=== PATIENT | male | born 1945 | race Caucasian/White ===

== ENCOUNTER 2016-12-06 13:09 | Inpatient (IN) | payer MEDICARE ==
[~2016-12-06] VITALS: Ht 182.9 cm; Wt 95.5 kg
[2016-12-07] MEDS ORDERED: LIPI10TA PO (09:36)
[2016-12-07] MEDS ORDERED: HYDR-3534 PO (09:36)
[2016-12-07] MEDS ORDERED: CHOL50008 PO (09:36)
[2016-12-07] MEDS ORDERED: PRIL20CA9 PO (09:36)
[2016-12-07] MEDS ORDERED: LISI-519 PO (09:36)
[2016-12-07] MEDS ORDERED: IBUP400T20 PO (09:36)
[2016-12-07] MEDS ORDERED: CARV3.12 PO (09:36)
[2016-12-07] MEDS ORDERED: FLUT1SPR5 EACH NARE (09:42)
[2016-12-24] MEDS ORDERED: POVIDONE IODINE 5% (ANTISEPSIS KIT) 4 APPLICATIONS EACH NARE PRN (05:30)
[2016-12-24] MEDS ORDERED: CHLORHEXIDINE GLUCONATE 2 % 1 PACK (2 CLOTHS) TOPICAL PRN (05:30)
[2016-12-24] MEDS ORDERED: SODIUM CHLORID 0.9% 500 ML IV PRN (05:30)
[2016-12-24] MEDS ORDERED: INSULIN HUMAN REGULAR 1,000 UNITS/10 ML VIAL SQ PRN (05:30)
[2016-12-24] MEDS ORDERED: METOPROLOL TARTRATE 25 MG TAB PO PRN (05:30)
[2016-12-24] MEDS ORDERED: LACTATED RINGER'S 1000 ML INJ 1,000 ML IV SCH (05:30)
[2016-12-24] MEDS ORDERED: DEXAMETHASONE SOD PHOS 20 MG/5 ML VIAL ONE (05:37)
[2016-12-24] MEDS ORDERED: VANCOMYCIN HCL 1000 MG VIAL ONE (05:37)
[2016-12-24] MEDS ORDERED: ceFAZolin 2 GM PREMIX 50 ML ONE (05:37)
[2016-12-24] MEDS ORDERED: SODIUM CHLOR 0.9% 250 ML INJ 250 ML ONE (05:37)
[2016-12-24] MEDS: POVIDONE IODINE 7.5% SCRUB 118 ML BOTTLE TOPICAL SCH (05:45)
[2016-12-24] MEDS ORDERED: DEXAMETHASONE SOD PHOS 20 MG/5 ML VIAL IV PRN (05:45)
[2016-12-24] MEDS ORDERED: VANCOMYCIN 1000 MG/NS 250 ML (for <70 kg) IV SCH ×2 (05:45)
[2016-12-24] MEDS: CHLORHEXIDINE GLUCONATE 4% SOLN 120 ML BTL TOPICAL SCH (05:45)
[2016-12-24] MEDS ORDERED: TRANEXAMIC ACID IV SCH (05:45)
[2016-12-24] MEDS ORDERED: ceFAZolin 2 GM PREMIX 50 ML IV SCH (05:45)
[2016-12-24] MEDS ORDERED: [UNRECOGNIZED DRUG - OTHER] P-ARTICULR SCH ×2 (05:45)
[2016-12-24] MEDS ORDERED: TRANEXAMIC PERI-ARTICULAR 3,000 MG/NS 100 ML P-ARTICULR SCH ×2 (05:45)
[2016-12-24] MEDS ORDERED: SODIUM CHLORIDE 0.9% IV SCH (05:45)
[2016-12-24] MEDS ORDERED: ROPIVACAINE PERI-ARTICULAR INJECTION. P-ARTICULR SCH ×5 (05:45)
[2016-12-24] MEDS ORDERED: LISI20TA PO (05:51)
[2016-12-24 05:52] VITALS: BP 148/87; PULSE 78; RESP 22; TEMP 98; O2SAT 97
[2016-12-24] MEDS ORDERED: GENTAMICIN SULFATE 80 MG/2 ML VIAL ONE (06:13)
[2016-12-24] MEDS ORDERED: FAMOTIDINE 20 MG/2 ML VIAL ONE (06:47)
[2016-12-24] MEDS ORDERED: ACETAMINOPHEN 1000 MG/100 ML VIAL IV ONE (06:47)
[2016-12-24] MEDS ORDERED: DEXAMETHASONE SOD PHOS 4 MG/ML VIAL ONE (06:50)
[2016-12-24] MEDS ORDERED: MIDAZOLAM HCL 2 MG/2 ML VIAL ONE ×2 (06:51→09:25)
[2016-12-24] MEDS ORDERED: HYDR-3288 PO (07:04)
[2016-12-24] MEDS ORDERED: ENOX40P SQ (07:04)
[2016-12-24] MEDS ORDERED: ASPI81CH37 CHEW (07:05)
[2016-12-24] MEDS ORDERED: BISACODYL 10 MG SUPP RECTAL PRN (07:15)
[2016-12-24] MEDS ORDERED: ACETAMINOPHEN/HYDROcodone 325 MG/7.5 MG TAB PO PRN ×2 (07:15→08:00)
[2016-12-24] MEDS ORDERED: Post-op Orders (for Pharmacy) MISC XX ONE (07:15)
[2016-12-24] MEDS ORDERED: SODIUM CHLORIDE 0.9% FLUSH 5 ML FLUSH IVF PRN (07:15)
[2016-12-24] MEDS ORDERED: MORPHINE SULFATE 4 MG/ML INJ IV PUSH PRN (08:00)
[2016-12-24] MEDS ORDERED: NALOXONE HCL 0.4 MG/ML AMP IV PRN (08:00)
[2016-12-24] MEDS ORDERED: ZOLPIDEM TARTRATE 5 MG TAB PO PRN (08:00)
[2016-12-24] MEDS ORDERED: diphenhydrAMINE HCL 50 MG/ML VIAL IV PRN (08:00)
[2016-12-24] MEDS ORDERED: ONDANSETRON HCL 4 MG/2 ML VIAL IVP PRN (08:00)
[2016-12-24] MEDS ORDERED: ALUMINUM/MAGNESIUM/SIMETH 30 ML CUP PO PRN (08:00)
[2016-12-24] MEDS: HYDROCHLOROTHIAZIDE 25 MG TAB PO SCH (09:00)
[2016-12-24] MEDS ORDERED: CARVEDILOL 3.125 MG TAB PO SCH (09:00)
[2016-12-24] MEDS: PANTOPRAZOLE SOD 20 MG DELAYED RELEASE TAB PO SCH (09:00)
[2016-12-24] MEDS: LISINOPRIL 20 MG TAB PO SCH (09:00)
[2016-12-24] MEDS ORDERED: DO NOT ADM ANY ANTICOAGULANT DRUGS PRN (09:13)
[2016-12-24] MEDS ORDERED: *morphine SULFATE 8 MG/ML PERIprocedure ONLY ONE ×3 (09:39→10:01)
[2016-12-24] MEDS: SODIUM CHLOR 0.9% 1000 ML INJ 1,000 ML IV SCH ×2 (09:51→18:00)
[2016-12-24] MEDS ORDERED: BUPIVACAINE LIPOSOME PF 1.3% 20 ML VIAL ONE (10:00)
--- NOTE | 2016-12-24 10:07 | RADRPT ---
EXAM DATE/TIME: 12/24/2016 10:50 [facility] COMPARISON: CHEST PA & LAT, December 07, 2016, 11:30. INDICATIONS : Post op knee surgery MEDICAL HISTORY : None. SURGICAL HISTORY : None. ENCOUNTER: Initial ACUITY: 1 day PAIN SCORE: Non-responsive. LOCATION: Left knee FINDINGS: The patient is post left knee arthroplasty. Orthopedic hardware is in excellent position. Alignment i s good. CONCLUSION: 1. Orthopedic hardware in excellent position. Malick Etienne MD on December 24, 2016 at 10:05 Board Certified Radiologist. This report was verified electronically.
[2016-12-24] MEDS: SODIUM CHLORIDE 0.9% FLUSH 5 ML FLUSH IVF SCH ×2 (10:08→20:14)
[2016-12-24 10:30] VITALS: BP 170/84; PULSE 64; RESP 18; TEMP 95.7; O2SAT 99
--- NOTE | 2016-12-24 10:44 | PD.CONS ---
HPI Service [facility] Hospitalists Consult Requested By Dr. Lavon Flores Reason for Consult Medical Management Primary Care Physician David Conklin M.D. Diagnoses: History of Present Illness Mr. Randall is a pleasant 71 y/o male with osteoarthritis, HTN, and hyperlipidemia. Pt was admitted to [facility] on 12/24/16 for left total knee arthroplasty with Dr. Flores. [facility] Hospitalist team was consulted to help manage the pts chronic medical issues. Pt is seen post-operatively and is without any specific complaints. Vital signs are stable. Thompson cath is in place. Review of Systems Constitutional: DENIES: Fever Respiratory: DENIES: Cough, Shortness of breath Cardiovascular: DENIES: Chest pain Gastrointestinal: DENIES: Nausea, Vomiting Genitourinary: DENIES: Hematuria Musculoskeletal: COMPLAINS OF: Joint pain Integumentary: DENIES: Rash Neurologic: DENIES: Headache Psychiatric: DENIES: Confusion Past Family Social History Past Medical History Hyperlipidemia HTN Hx of tobacco use Chronic pain GERD Past Surgical History Hernia repair Umbilical hernia repair Varicose vein surgery Reported Medications -Lisinopril-Hctz 20-12.5 Mg ii PO DAILY -Lortab 7.5-325 Mg PO DAILY PRN -Carvedilol 3.125 Mg PO BID (?12.5mg) --Lipitor 40 Mg PO DAILY Flonase Nasal [place] 50 Mcg EACH NARE DAILY Ibuprofen 400 Mg Tab 400 Mg PO BID PRN Prilosec 20 Mg PO DAILY Vitamin D3 5,000 Unit Tab 2 Cap PO DAILY Allergies: Coded Allergies: No Known Allergies (Verified , 12/24/16) Family History Noncontributory Social History Hx of tobacco use, quit in 2007 Social alcohol use Physical Exam Vital Signs Vital Signs Date Time Temp Pulse Resp B/P Pulse Ox O2 Delivery O2 Flow Rate FiO2 12/24/16 05:52 98.0 78 22 148/87 97 Physical Exam GENERAL: This is a well-nourished, well-developed patient, in no apparent distress. HEENT: Atraumatic. Normocephalic. No temporal or scalp tenderness. No scleral icterus. Airway patent. NECK: Trachea midline, supple, nontender. CARDIO: Regular. RESP: CTA bilaterally. No wheezes, rales, or rhonchi. ABD: +BS, soft, non-tender, nondistended. EXT: Left knee bandages are c/d/i NEURO: Awake and alert. Motor and sensory grossly within normal limits. Normal speech. Laboratory Laboratory Tests Test 12/24/16 06:00 Blood Type O POSITIVE Antibody Screen NEGATIVE Blood Bank Comment Imaging Last Impressions Knee X-Ray 12/24/16 0701 Signed Impressions: Service Date/Time: Saturday, December 24, 2016 10:50 - CONCLUSION: 1. Orthopedic hardware in excellent position. Malick Etienne MD Assessment and Plan Problem List: (1) Primary localized osteoarthrosis, lower leg Status: Chronic Plan: - Pt s/p left total knee arthroplasty on 12/24/[address] Flores - Post-op pain control per Ortho - PT daily - IS - Constipation precautions. - DVT prophylaxis (2) HTN (hypertension) Status: Chronic Plan: - Pt is on Coreg 12.5mg po BID (?3.125mg dose) and Lisinopril-HCTZ 20-12.5mg ii Daily - Monitor (3) Hyperlipidemia Status: Chronic Plan: - Home meds continued (4) GERD (gastroesophageal reflux disease) Status: Chronic Plan: - PPI Assessment and Plan Patient examined. Assessment and plan formulated with Rosalva Montero PA-C. I agree with the above. medically stable. reviewed medication list. will follow. Problem Qualifiers (1) Primary localized osteoarthrosis, lower leg: Qualified Code: M17.12 - Primary localized osteoarthrosis, lower leg, left Rosalva Montero Dec 24, 2016 10:44 Alvaro Adams MD Dec 24, 2016 14:29
[2016-12-24] MEDS: ACETAMINOPHEN/HYDROcodone 325 MG/7.5 MG TAB PO PRN ×3 (11:41→20:11)
[2016-12-24 12:00] VITALS: BP 159/85; PULSE 68; RESP 18; TEMP 96.3; O2SAT 99
[2016-12-24] MEDS ORDERED: PHENYLEPH/NS 1000 MCG/10 ML SYR IV ONE (12:00)
[2016-12-24] MEDS ORDERED: ONDANSETRON HCL 4 MG/2 ML VIAL IV PUSH ONE (12:00)
[2016-12-24] MEDS ORDERED: PROPOFOL 200 MG/20 ML AMP IV ONE (12:00)
[2016-12-24] MEDS ORDERED: MAGNESIUM HYDROXIDE SUSP 30 ML CUP PO PRN (14:00)
[2016-12-24 14:33] VITALS: O2SAT 98
[2016-12-24 16:00] VITALS: BP 142/83; PULSE 77; RESP 18; TEMP 96.5; O2SAT 95
[2016-12-24 20:00] VITALS: BP 142/69; PULSE 98; RESP 17; TEMP 97.6; O2SAT 96
[2016-12-24] MEDS: CARVEDILOL 12.5 MG TAB PO SCH (20:11)
[2016-12-25 00:10] VITALS: BP 128/75; PULSE 75; RESP 18; TEMP 96; O2SAT 97
[2016-12-25] MEDS: ACETAMINOPHEN/HYDROcodone 325 MG/7.5 MG TAB PO PRN ×3 (00:15→09:10)
[2016-12-25 04:20] VITALS: BP 155/85; PULSE 77; RESP 17; TEMP 96.6; O2SAT 95
[2016-12-25] MEDS: SODIUM CHLOR 0.9% 1000 ML INJ 1,000 ML IV SCH (04:36)
[2016-12-25] MEDS: POVIDONE IODINE 7.5% SCRUB 118 ML BOTTLE TOPICAL SCH (05:45)
[2016-12-25] MEDS: CHLORHEXIDINE GLUCONATE 4% SOLN 120 ML BTL TOPICAL SCH (05:45)
[2016-12-25 07:26] LABS: HEMATOCRIT 34.9 % (39.0-51.0); MEAN CELL VOLUME 93.9 FL (80.0-100.0); MEAN CORPUSCULAR HEMOGLOBIN 31.8 PG (27.0-34.0); MEAN CORPUSCULAR HGB CONC 33.8 % (32.0-36.0); PLATELET COUNT 177 TH/MM3 (150-450); RED BLOOD COUNT 3.72 MIL/MM3 (4.50-5.90); REVIEW FLAG FINAL; WHITE BLOOD COUNT 11.9 TH/MM3 (4.0-11.0)
[2016-12-25 07:52] LABS: BICARBONATE 26.9 MEQ/L (21.0-32.0); POTASSIUM 3.8 MEQ/L (3.5-5.1)
[2016-12-25 08:00] VITALS: BP 160/87; PULSE 68; RESP 18; TEMP 97.7; O2SAT 95
--- NOTE | 2016-12-25 08:05 | PD.ORT.PN ---
Subjective Post Op Day #: 1 Subjective Remarks pain under control. ready to go home. Objective Vitals Vital Signs Date Time Temp Pulse Resp B/P Pulse Ox O2 Delivery O2 Flow Rate FiO2 12/25/16 04:20 96.6 77 17 155/85 95 12/25/16 00:10 96.0 75 18 128/75 97 12/24/16 20:00 97.6 98 17 142/69 96 12/24/16 17:05 18 12/24/16 16:00 96.5 77 18 142/83 95 12/24/16 14:33 98 Nasal Cannula 2.00 12/24/16 12:00 96.3 68 18 159/85 99 12/24/16 10:36 Nasal Cannula 2.00 12/24/16 10:30 95.7 64 18 170/84 99 12/24/16 10:15 97.0 64 15 154/89 98 Nasal Cannula 2 12/24/16 10:00 60 15 152/89 96 Nasal Cannula 2 12/24/16 09:45 63 15 150/87 96 Nasal Cannula 2 12/24/16 09:30 97.0 68 14 135/79 93 Room Air 12/24/16 09:15 96.8 70 14 136/79 98 Nasal Cannula 2 I/O 12/24/16 12/24/16 12/24/16 12/25/16 12/25/16 12/25/16 07:00 15:00 23:00 07:00 15:00 23:00 Intake Total 2950 ml 720 ml 240 ml Output Total 550 ml 200 ml 650 ml Balance 2400 ml 520 ml -410 ml Intake Oral 1200 ml 720 ml 240 ml IV Total 150 ml Other 1600 ml Output Urine Total 400 ml 200 ml 650 ml Estimated Blood Loss 150 ml # Voids 1 1 # Bowel Movements 0 0 Result Diagram: 12/25/16 0657 12/25/16 0657 Objective Remarks in bed, nad incision no erythema, no drainage neg homans nvi Assessment & Plan Ortho Post Op Day #: 1 Problem List: Assessment and Plan s/p L TKA wbat daily dressing changes lovenox d/c planning home with [facility] and pt rx in chart f/up dr. hartmann 2 weeks Lavon Awad Dec 25, 2016 08:05
--- NOTE | 2016-12-25 08:06 | HHI.DCPOC ---
Discharge Care Plan Diagnosis: (1) Primary localized osteoarthrosis, lower leg Your Health Problems Are: Difficulty with ADL Goals to Promote Your Health * To prevent worsening of your condition and complications * To maintain your health at the optimal level Directions to Meet Your Goals Take your medications as prescribed Follow your dietary instruction Follow activity as directed Keep your appointments as scheduled Take your immunizations and boosters as scheduled If your symptoms worsen call your PCP, if no PCP go to Urgent Care Center or Emergency Room Smoking is Dangerous to Your Health. Avoid second hand smoke Call the 24-hour hour crisis hotline for domestic abuse at Laovn Awad Dec 25, 2016 08:06
--- NOTE | 2016-12-25 08:07 | HHI.FF ---
Face to Face Verification Diagnosis: (1) Primary localized osteoarthrosis, lower leg Physical Therapy Gait training, Safety evaluation, Transfer training, bed to chair Knee: Total knee, Protocol: Left, Full weight bearing Left LE Weight Bearing: WB as tolerated Nursing RN: 3 days/week x 2 weeks Nursing: Yani teaching, Dressing changes Dressing Changes: Daily dressing change I have seen patient Bryson Randall on 12/25/16. My clinical findings support the need for the requested home health care services because: Limited ability to care for self High risk of falls I certify that my clinical findings support that this patient is homebound because: Post-op weakness Unsteady gait/balance Lavon Awad Dec 25, 2016 08:07
[2016-12-25] MEDS ORDERED: WALKER WHEELS/F1 MIS (08:09)
[2016-12-25] MEDS ORDERED: COMMODE 3-IN-11 MIS (08:09)
[2016-12-25] MEDS ORDERED: CPMMACHINE (08:09)
[2016-12-25] MEDS: SODIUM CHLORIDE 0.9% FLUSH 5 ML FLUSH IVF SCH (09:00)
[2016-12-25] MEDS ORDERED: ENOXAPARIN SODIUM 40 MG/0.4 ML SYRINGE SQ SCH (09:00)
[2016-12-25] MEDS: CARVEDILOL 12.5 MG TAB PO SCH (09:09)
[2016-12-25] MEDS: PANTOPRAZOLE SOD 20 MG DELAYED RELEASE TAB PO SCH (09:09)
[2016-12-25] MEDS: HYDROCHLOROTHIAZIDE 25 MG TAB PO SCH (09:09)
[2016-12-25] MEDS: LISINOPRIL 20 MG TAB PO SCH (09:09)
[2016-12-25 09:36] VITALS: O2SAT 95
[2016-12-25] MEDS ORDERED: DOCUSATE SODIUM 100 MG CAP PO SCH (21:00)
[2016-12-25] MEDS ORDERED: MULTIVITAMINS/MINERALS THERAPEUTIC TAB PO SCH (21:00)
--- NOTE | 2016-12-26 13:18 | MP ---
cc: RAUL COX M.D. DATE OF OPERATION 12/24/2016 PREOPERATIVE DIAGNOSIS Left knee osteoarthritis. POSTOPERATIVE DIAGNOSES Left knee osteoarthritis. PROCEDURE Left total knee arthroplasty. SURGEON Dr. Raul Cox MANAGER WIND Jesus Awad PA-C ANESTHESIA Spinal with femoral nerve block. ESTIMATED BLOOD LOSS 50 cc. TOURNIQUET TIME 57 minutes at 250 mmHg COMPLICATIONS None. IMPLANTS USED DePuy Attune size 9 posterior stabilized femoral component, size 9 rotating platform tibial baseplate, size 5-mm polyethylene tibial insert, size 38-mm patella. JUSTIFICATION This patient is a 72-year-old male with a history of severe end-stage degenerative osteoarthritis involving his left knee. He has severe disabling pain with standing, walking, ambulation, weightbearing activities, even severe pain at rest. This interferes with his activities of daily living. He has failed greater than three months of nonoperative conservative treatment modalities to include medication therapy, injections, ambulatory assistive aids, home exercise program and activity modification. X-rays of the left knee reveal severe end-stage osteoarthritis and [id number] joint space narrowing, subchondral sclerosis, subchondral cysts, osteophyte formation and varus deformity. The patient was counseled as to his risks, benefits and alternatives to a total knee arthroplasty. The risks were discussed which include but are not limited to anesthesia, bleeding, infection, damage to nerves, blood vessels, pain, stiffness, failure of the components, blood clots, pulmonary embolism and even . The patient's pain is severe. He favored the benefits over the risks and he did wish to proceed with surgery. PROCEDURE IN DETAIL Written consent was obtained. The patient was identified by name, taken to the operating room, placed supine on the operating table. Spinal anesthesia was administered as well as a femoral nerve block. A well-padded tourniquet was placed on the left thigh, the left lower extremity prepped and draped using isopropyl alcohol, Hibiclens solution and Chloraprep solution. After a time-out was performed, an Esmarch bandage was used to exsanguinate the left lower extremity and the tourniquet inflated to 250 mmHg. A longitudinal incision was made over the anterior aspect of the left knee. A medial parapatellar arthrotomy incision was performed. The patella was everted. Patella resection guide was used to resected 9 mm of patella. The size 39-mm guide was placed, three drill holes were placed and the 38-mm trial fit well. Attention was turned to the femur where an intramedullary guide maritza was placed and the distal femoral cutting guide set to remove 10 mm off the distal femur, 5 degrees off the anatomic valgus axis alignment. An oscillating saw was used to perform the distal femoral cut. Attention was turned to the tibia where an extramedullary tibial guide was used to remove 4-mm off the lowest portion of the medial tibial plateau. The tibial guide was pinned in place. The tibia cut was performed. The 5-mm spacer block showed full extension. Attention was turned back to the femur where the AP sizing block measured to a size 9. The anterior reference, 3-degree external rotation guide was used to pin a size [address]. Anterior and posterior chamfer cuts were performed. The size 9 PCL box guide was pinned in place and the PCL was boxed out with an oscillating saw. The medial and lateral meniscus remnants were removed as well as bone and soft tissue debris from the posterior portion of the knee. A size 9 tibial baseplate was pinned in place, the tibia was drilled and punched, trial components were evaluated and final components cemented in place. With the 5-mm tibial insert, the leg could achieve full extension to 0 degrees and flexion to 140. No evidence of tibial lift-off. Varus-valgus balance appeared appropriate and symmetric. The tourniquet was deflated, Bovie cautery used for hemostasis. The wound was thoroughly irrigated with sterile saline pulse lavage antibiotic impregnated solution. The arthrotomy incision was closed with #1 Vicryl suture, the subcutaneous tissue with 2-0 Vicryl suture. The skin was closed with Dermabond and sterile dressing applied. The patient tolerated the procedure well with no intraoperative complications noted. Jesus Awad, physician marketing administrative assistant certified, was present during the entire procedure to include patient positioning and the procedure itself. The medical necessity of the physician marketing administrative assistant was indicated in this case due to the complexity of the procedure. He assisted with appropriate manipulation of the leg and also retraction of muscle, tendon, bone and neurovascular structures. He assisted with preparation of bone clips and also implantation of the prosthetic replacement. MD DELORES Grover/CARLOS /9:04 AM /12:56 PM
--- NOTE | 2017-01-01 10:32 | MD ---
cc: RAUL COX M.D. ADMISSION DATE: 12/24/2016 DISCHARGE DATE: 12/25/2016 ADMISSION DIAGNOSIS Severe degenerative osteoarthritis left knee. DISCHARGE DIAGNOSIS Severe degenerative osteoarthritis left knee. HISTORY OF PRESENT ILLNESS Mr. Randall is a 71-year-old male who presented to the [facility] for evaluation by Dr. Raul Cox regarding his severe and progressive left knee pain. The patient states the pain has been bothering him for numerous years and currently is becoming unbearable. He said the pain was inhibiting his activities of daily living. He states his knee pain is severe aggravated by any type of weightbearing activities. He notes he has no significant alleviating factors at this point in time although in the past she has tried medications, bracing, physical therapy, home exercises and multiple corticosteroid injections without long-lasting relief. He does have x-ray evidence of severe degenerative osteoarthritis of the left knee. While in the office the patient was counseled on his diagnosis and treatment options, risks, benefits, and indications of all were discussed in great detail. The patient did elect to proceed with surgical intervention to include a left total knee arthroplasty. DATE OF SURGERY 12/24/2016. PROCEDURE PERFORMED Left total knee arthroplasty. POSTOP After surgery the patient was admitted to [facility] where he received appropriate medical management and pain control, DVT prophylaxis, as well as physical therapy. DISCHARGE Once being discharged from the hospital, the patient is cleared to go home where he will receive home health care and home physical therapy. CONDITION He is in stable condition. DISCHARGE INSTRUCTIONS The patient may weight-bear as tolerated. The patient has been instructed on proper wound care management and is to receive daily dressing changes. DISCHARGE MEDICATIONS The patient has been provided prescriptions for pain control as well as DVT prophylaxis medication. FOLLOWUP He has been provided a follow-up appointment to see Dr. Raul Cox in the office in approximately two weeks from the day of surgery. The patient asked appropriate questions which have been answered. The patient has been discharged. Dictated by: Jesus Awad PA-C Raul Cox MD JWM/CARLOS /7:44 AM /10:27 AM
== END 2016-12-25 11:32 | disposition home health service (06) | DRG 470 ==
LOC: HSDI 12-24 05:08 → N06B 12-24 10:32
PROVIDERS: ADMIT Orthopaedic Surgery Sports Medicine; ATTEND Orthopaedic Surgery Sports Medicine
PROC: 3E0T3CZ (ICD-10-PCS; 2016-12-24)
PROC: 0SRD0J9 Replacement of Left Knee Joint with Synthetic Substitute, Cemented, Open Approach (ICD-10-PCS; principal; 2016-12-24 06:52)
DX: M17.12 Unilateral primary osteoarthritis, left knee (principal); I10 Essential (primary) hypertension; E78.5 Hyperlipidemia, unspecified; K21.9 Gastro-esophageal reflux disease without esophagitis; Z87.891 Personal history of nicotine dependence
CPT/HCPCS: 73560; 80048; 85027; 86850; 86900; 86901; 94150; C1776; C9290; J0131; J0690; J1100; J1580; J1650; J2250; J2270; J2370; J2405; J3010; J3370; J7030; J7050; L1830

== ENCOUNTER → 2016-12-07 | Outpatient (CLI) | payer MEDICARE ==
[~2016-12-07] MED LIST: ASPI81CH37 CHEW; CARV3.12 PO; CHOL50008 PO; COMMODE 3-IN-11 MIS; CPMMACHINE; DIOV40TA PO; ENOX40P SQ; FLUT1SPR5 EACH NARE; HYDR-3288 PO; HYDR-3534 PO; IBUP400T20 PO; LIPI10TA PO; LISI-519 PO; LISI20TA PO; PRIL20CA9 PO; PRIL20TA2 PO; TRIPLEX; VYTO10TA29 PO; WALKER WHEELS/F1 MIS
[2016-12-07 09:42] LABS: BASOPHIL # 0.1 TH/MM3 (0-0.2); BASOPHIL % 0.8 % (0.0-2.0); EOSINOPHIL # 0.3 TH/MM3 (0-0.4); HEMATOCRIT 40.7 % (39.0-51.0); HEMO FLAGS DIFF FINAL; LYMPHOCYTE # 1.9 TH/MM3 (1.0-4.8); MEAN CELL VOLUME 94.1 FL (80.0-100.0); MEAN CORPUSCULAR HEMOGLOBIN 31.4 PG (27.0-34.0); MEAN CORPUSCULAR HGB CONC 33.3 % (32.0-36.0); MONO % 6.6 % (0.0-8.0); NEUT % 60.6 % (16.0-70.0); PLATELET COUNT 200 TH/MM3 (150-450); RED BLOOD COUNT 4.32 MIL/MM3 (4.50-5.90); RED CELL DISTRIBUTION WIDTH 12.7 % (11.6-17.2); WHITE BLOOD COUNT 6.6 TH/MM3 (4.0-11.0)
[2016-12-07 09:42] LABS: BLOOD, URINE NEG (NEG); COMMENT (UR) CULT NOT INDICATED; CULTURE IF INDICATED CULT NOT INDICATED; GLUCOSE,URINE NEG (NEG); HYALINE CAST, URINE 7 /lpf (RARE); KETONE, URINE NEG (NEG); NITRITE,URINE NEG (NEG); URINE COLOR YELLOW (YELLW/STRAW)
[2016-12-07 09:51] LABS: APTT (PATIENT) 27.1 SEC (24.3-30.1); PROTHROMBIN TIME - PATIENT 10.9 SEC (9.8-11.6)
[2016-12-07 10:03] LABS: WESTERGREN SEDIMENTATION RATE 7 mm/hr (0-20)
[2016-12-07 10:24] LABS: ALKALINE PHOSPHATASE 63 U/L (45-117); ALT (GPT) 31 U/L (12-78); ANION GAP 8 MEQ/L (5-15); AST (GOT) 16 U/L (15-37); BICARBONATE 28.2 MEQ/L (21.0-32.0); BLOOD UREA NITROGEN 25 MG/DL (7-18); CHLORIDE 106 MEQ/L (98-107); GLOMERULAR FILTRATION RATE 63 ML/MIN (>89); GLUCOSE,FASTING 112 MG/DL (74-99); POTASSIUM 4.5 MEQ/L (3.5-5.1); SODIUM (NA) 142 MEQ/L (136-145); TOTAL BILIRUBIN ADULT 0.5 MG/DL (0.2-1.0)
--- NOTE | 2016-12-07 11:58 | RADRPT ---
EXAM DATE/TIME: 12/07/2016 11:30 [facility] COMPARISON: No previous studies available for comparison. INDICATIONS: Evaluate for pneumonia, pneumothorax, and communicable disease. Pre-op for left total knee replacemen t. MEDICAL HISTORY: None. SURGICAL HISTORY: None. ENCOUNTER: Initial ACUITY: 1 day PAIN SCORE: 0/10 LOCATION: Bilateral chest FINDINGS: There is some pleural thickening over the right chest. Degenerative changes are seen in the thoracic spine. Heart and pulmonary vascularity are normal. CONCLUSION: Negative chest for acute disease. Navid Etienne MD FACR on December 07, 2016 at 11:45 Board Certified Radiologist. This report was verified electronically.
--- NOTE | 2016-12-07 15:48 | EKG ---
Date Performed: 12/07/2016 Time Performed: 09:28:56 PTAGE: 71 years EKG: Sinus rhythm WITH FIRST DEGREE AV BLOCK WITH OCCASIONAL VENTRICULAR PREMATURE COMPLEXES RIGHT ATRIAL ENLARGEMENT INDETERMINATE AXIS TALL P-WAVES CONSIDER HYPERKALIEMIA PROBABLE LVH NO PRIOR FOR COMPARISON ABNORMAL ECG NO PREVIOUS TRACING DOCTOR: Gloria Campo Interpretating Date/Time 12/07/2016 15:46:32
== END ==
LOC: CPRE 09:00
PROVIDERS: ATTEND Orthopaedic Surgery Sports Medicine
DX: Z01.810 Encounter for preprocedural cardiovascular examination (principal); Z01.812 Encounter for preprocedural laboratory examination; M17.12 Unilateral primary osteoarthritis, left knee; Z79.01 Long term (current) use of anticoagulants; M25.50 Pain in unspecified joint; I44.0 Atrioventricular block, first degree
CPT/HCPCS: 36415; 71020; 80053; 81001; 85025; 85610; 85652; 85730; 93005

== ENCOUNTER 2017-05-18 21:41 | Emergency (ER) | payer MEDICARE ==
[~2017-05-18] VITALS: Ht 182.9 cm; Wt 90.0 kg
[~2017-05-18 21:41] MED LIST changes: -DIOV40TA PO; -HYDR-3534 PO; -IBUP400T20 PO; -LISI-519 PO; -PRIL20TA2 PO; -TRIPLEX; -VYTO10TA29 PO
[2017-05-18 21:52] VITALS: BP 139/72; PULSE 82; RESP 18; TEMP 98.1; O2SAT 98
[2017-05-18 21:56] VITALS: O2SAT 96
[2017-05-18] MEDS ORDERED: TETANUS/DIPHTHERIA TOXOID ADULT 0.5 ML VIAL IM ONE (22:00)
[2017-05-18] MEDS ORDERED: LIDOCAINE 1%/EPINEPHrine 1:100,000 SOLN 20 ML VIAL INFIL ONE (22:00)
--- NOTE | 2017-05-18 22:23 | PD ---
HPI Chief Complaint: Fall Time Seen by Provider: 21:48 Travel History International Travel<30 days: No Contact w/Intl Traveler<30days: No Traveled to known affect area: No History of Present Illness HPI 71-year-old male that presents to the ED via ambulance for evaluation of fall and alcohol. Patient apparently had a mechanical fall today while trying to leave a bar. Patient admitted past the door and apparently he stumbled and hit his head. Follow was witnessed by bystanders. Patient apparently lost consciousness for a few minutes. Patient does have a laceration to his head. Patient himself complains of nothing. He is not aware what happened. He does smell of alcohol and states that he's had a little alcohol today. He denies any chest pain or shortness of breath. No pain of any kind. Unclear as to his last tetanus booster. History is limited because of his intoxication. Per ambulance he is repetitive in questioning and during my evaluation I had to repeat to him almost 5 times that he had an accident hit his head. He denies taking any blood thinners. PFSH Past Medical History Cancer: No Cardiovascular Problems: No High Cholesterol: Yes Diabetes: No Diminished Hearing: No Endocrine: No Gastrointestinal Disorders: Yes (acid reflux) GERD: Yes Genitourinary: No Hepatitis: No Hiatal Hernia: No Hypertension: Yes (on med) Immune Disorder: No Musculoskeletal: Yes (SACRUM FX, arthritis) Neurologic: No Psychiatric: No Respiratory: No Thyroid Disease: No Influenza Vaccination: Yes Past Surgical History Abdominal Surgery: Yes (ABDOMINAL HERNIA REPAIR) AICD: No Cardiac Surgery: No Ear Surgery: No Endocrine Surgery: No Eye Surgery: No Genitourinary Surgery: No Gynecologic Surgery: No Joint Replacement: No Oral Surgery: No Pacemaker: No Thoracic Surgery: No Other Surgery: Yes (VARICOSE VEIN STRIPPING RLE) Social History Alcohol Use: Yes (DAILY A FEW DRINKS) Tobacco Use: No Substance Use: Yes (marijuana) Allergies-Medications (Allergen,Severity, Reaction): Coded Allergies: No Known Allergies (Verified , 05/18/17) Reported Meds & Prescriptions Reported Meds & Active Scripts Active Commode 3-in-1 (Device) 1 Mis Mis 1 Ea .ROUTE DIRECTED Aspirin Low Dose (Aspirin) 81 Mg Chew 81 Mg CHEW BID PRN [place] (Hydrocodone-Acetaminophen) 7.5-325 mg Tab 1-2 Tab PO Q6H PRN Reported Lisinopril-Hctz 20-12.5 Mg Tab 2 Tab PO DAILY Flonase Nasal [place] (Fluticasone Nasal [place]) 50 Mcg/Act [place] 50 Mcg EACH NARE DAILY Carvedilol 3.125 Mg Tab 3.125 Mg PO BID Lipitor (Atorvastatin Calcium) 10 Mg Tab 10 Mg PO DAILY Review of Systems Except as stated in HPI: all other systems reviewed are Neg Physical Exam Narrative GENERAL: SKIN: Warm and dry. Patient has a very superficial about 1 cm laceration to the left eyebrow. Very well approximated. Patient does have abrasions to his nose as well as to the left side of his forehead. HEAD: Atraumatic. Normocephalic. EYES: Pupils equal and round. No scleral icterus. No injection or drainage. ENT: No nasal bleeding or discharge. Mucous membranes pink and moist. Tongue is midline. No uvula deviation. NECK: Trachea midline. No JVD. CARDIOVASCULAR: Regular rate and rhythm. No murmurs, S3, S4. RESPIRATORY: No accessory muscle use. Clear to auscultation. Breath sounds equal bilaterally. GASTROINTESTINAL: Abdomen soft, non-tender, nondistended. Hepatic and splenic margins not palpable. MUSCULOSKELETAL: Extremities without clubbing, cyanosis, or edema. No obvious deformities. Full range of motion of the upper and lower extremities bilaterally. 2+ pulses bilaterally. No lumbar, thoracic spine tenderness to palpation. Patient was seen with cervical collar and did a back board which was removed by me after properly assessed. Cervical collar still left in place. NEUROLOGICAL: Awake and alert. No obvious cranial nerve deficits. Motor grossly within normal limits. Five out of 5 muscle strength in the arms and legs. Normal speech. PSYCHIATRIC: Appropriate mood and affect; insight and judgment normal. Data Data Last Documented VS Vital Signs Date Time Temp Pulse Resp B/P (MAP) Pulse Ox O2 Delivery O2 Flow Rate FiO2 05/18/17 21:56 81 18 97 Room Air 05/18/17 21:52 98.1 139/72 (94) Orders Orders Electrocardiogram (05/18/17 21:48) Complete Blood Count With Diff (05/18/17 21:48) Basic Metabolic Panel (Bmp) (05/18/17 21:48) Prothrombin Time / Inr (Pt) (05/18/17 21:48) Act Partial Throm Time (Ptt) (05/18/17 21:48) Magnesium (Mg) (05/18/17 21:48) Ct Brain W/O Iv Contrast(Rout) (05/18/17 21:48) Iv Access Insert/Monitor (05/18/17 21:48) Ecg Monitoring (05/18/17 21:48) Oximetry (05/18/17 21:48) Drug Screen, Random Urine (05/18/17 21:48) Alcohol (Ethanol) (05/18/17 21:48) Ct Cerv Spine W/O Contrast (05/18/17 ) Ct Facial Bones W/O Iv Cont (05/18/17 ) Chest, Single Ap (05/18/17 ) Wound Care (05/18/17 21:48) Tetanus/Diphtheria Tox Adult (Tetanus/Di (05/18/17 22:00) Lidocai-Epi 1%-1:100,000 Inj (Xylocaine- (05/18/17 22:00) MDM Medical Decision Making Medical Screen Exam Complete: Yes Emergency Medical Condition: Yes Medical Record Reviewed: Yes Differential Diagnosis Head injury versus alcohol abuse versus alcohol intoxication versus trip versus fall versus head bleed versus laceration Narrative Course 72-year-old male that presents to the ED for evaluation of fall. Patient was properly examined and was found to have signs and symptoms consistent appears to intoxication and head injury. Last and imaging were ordered. After explained procedure to the patient she agreed to it laceration was repaired as stated in procedure note. Patient will be signed out to my attending pending imaging results and disposition. Procedures Procedure Narrative LACERATION LOCATION: left eyebrow LENGTH: 1 cm NUMBER OF STITCHES/CHELO: dermabond and 2 steristrips REPAIR: The area of the laceration was prepped with Betadine and sterilely draped. The wound was copiously irrigated and explored without evidence of foreign body, tendon injury or neurovascular injury. The wound was closed using steristrips and dermabond. This was a 1 layer repair. A sterile dressing was applied. The patient was advised to keep the dressing clean and dry. Patient tolerated the procedure well. uLis Flores May 18, 2017 22:23
[2017-05-18 22:42] LABS: AUTOMATED NEUTROPHIL # 4.1 TH/MM3 (1.8-7.7); BASOPHIL # 0.1 TH/MM3 (0-0.2); BASOPHIL % 0.9 % (0.0-2.0); EOSINOPHIL # 0.3 TH/MM3 (0-0.4); EOSINOPHIL % 3.2 % (0.0-4.0); HEMO FLAGS DIFF FINAL; LYMPH % 42.3 % (9.0-44.0); LYMPHOCYTE # 3.7 TH/MM3 (1.0-4.8); MEAN CELL VOLUME 95.7 FL (80.0-100.0); MEAN CORPUSCULAR HEMOGLOBIN 31.8 PG (27.0-34.0); MEAN CORPUSCULAR HGB CONC 33.3 % (32.0-36.0); MONO % 6.6 % (0.0-8.0); PLATELET COUNT 225 TH/MM3 (150-450); RED BLOOD COUNT 3.97 MIL/MM3 (4.50-5.90); RED CELL DISTRIBUTION WIDTH 13.6 % (11.6-17.2); WHITE BLOOD COUNT 8.8 TH/MM3 (4.0-11.0)
[2017-05-18 22:54] LABS: APTT (PATIENT) 26.1 SEC (24.3-30.1); BICARBONATE 23.6 MEQ/L (21.0-32.0); POTASSIUM 3.8 MEQ/L (3.5-5.1); PROTHROMBIN TIME - PATIENT 10.9 SEC (9.8-11.6)
--- NOTE | 2017-05-18 22:55 | RADRPT ---
EXAM DATE/TIME: 05/18/2017 22:38 [facility] COMPARISON: No previous studies available for comparison. INDICATIONS : Trauma. Fell hit left side of head. ETOH RADIATION DOSE: 36.67 CTDIvol (mGy) MEDICAL HISTORY : Hypertension. SURGICAL HISTORY : Umbilical hernia repair. ENCOUNTER: Initial ACUITY: 1 day PAIN SCALE: 0/10 LOCATION: Neck TECHNIQUE: Multiple contiguous axial images were obtained of the head. Using automated exposure control and adj ustment of the mA and/or kV according to patient size, radiation dose was kept as low as reasonably a chievable to obtain optimal diagnostic quality images. DICOM format image data is available electro nically for review and comparison. FINDINGS: The ventricles, sulci and cisterns are normal in size, shape and position for the patient's age. The re is no acute infarct, acute hemorrhage, mass effect or extra-axial fluid collections. Soft tissue swelling is not ed overlying the left zygoma. No skull fracture is noted. There is a sclerotic expansile mass involving the left lat eral mass of C1 which is incompletely evaluated on this examination. CONCLUSION: 1. No acute intracranial abnormality. 2. Sclerotic expansile mass involving the left lateral mass of C1 which is incompletely evaluated on this examination. 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 3. Soft tissue swelling overlying the left zygoma. Ivan Sanabria MD on May 18, 2017 at 22:43 Board Certified Radiologist. This report was verified electronically.
--- NOTE | 2017-05-18 23:18 | RADRPT ---
EXAM DATE/TIME: 05/18/2017 22:38 [facility] COMPARISON: No previous studies available for comparison. INDICATIONS : Trauma. Fell hit left side of head. ETOH RADIATION DOSE: 60.72 CTDIvol (mGy) MEDICAL HISTORY : Hypertension. SURGICAL HISTORY : Umbilical hernia repair. ENCOUNTER: Initial ACUITY: 1 day PAIN SCORE: 0/10 LOCATION: facial TECHNIQUE: Volumetric scanning of the facial bones was performed. Using automated exposure control and adjustme nt of the mA and/or kV according to patient size, radiation dose was kept as low as reasonably achiev able to obtain optimal diagnostic quality images. DICOM format image data is available electronicall y for review and comparison. FINDINGS: ORBITS: The orbital and infraorbital osseous structures are intact. The retroconal structures have a normal configuration. No radiopaque foreign bodies are seen. NASAL BONE: The nasal bone and maxillary spine are intact ZYGOMATIC ARCHES: Symmetric without evidence of fracture. SINUSES: Mild mucosal thickening is noted within the ethmoid air cells bilaterally, left sphenoid sinus and bi lateral maxillary sinuses. No air-fluid levels seen. NASAL CAVITY: The nasal septum is intact and midline. The lacrimal ducts are intact. SOFT TISSUES: No radiopaque foreign bodies seen. Soft tissue swelling is noted overlying the left zygoma. INTRACRANIAL: No intracranial air seen. CRIBIFORM PLATE: Grossly intact. CONCLUSION: 1. No facial bone fracture identified. 2. Soft tissue swelling overlying the left zygoma. 3. Mucosal thickening involving the bilateral maxillary and ethmoid sinuses as well as the left sphen oid sinus. Ivan Sanabria MD on May 18, 2017 at 23:14 Board Certified Radiologist. This report was verified electronically.
--- NOTE | 2017-05-18 23:19 | RADRPT ---
EXAM DATE/TIME: 05/18/2017 22:38 [facility] COMPARISON: No previous studies available for comparison. INDICATIONS : Trauma. Fell hit left side of head. ETOH RADIATION DOSE: 22.45 CTDIvol (mGy) MEDICAL HISTORY : Hypertension. SURGICAL HISTORY : Non-responsive. ENCOUNTER: Initial ACUITY: 1 day PAIN SCALE: 0/10 LOCATION: Neck TECHNIQUE: Volumetric scanning of the cervical spine was performed. Multiplanar reconstructions in the sagittal, coronal and oblique axial planes were performed. Using automated exposure control and adjustment o f the mA and/or kV according to patient size, radiation dose was kept as low as reasonably achievable to obtain optimal diagnostic quality images. DICOM format image data is available electronically f or review and comparison. FINDINGS: There is grade I anterolisthesis of C7 in relation to T1. Cervical spondylosis is noted at all level s. There is no acute fracture or prevertebral soft tissue swelling. The bony relationship and align ment between C1 and C2 is well maintained. There is extensive arthritic change with extensive osteop hytic spurring involving the left lateral mass of C1 and the skull base. Mild scoliosis of the cervi iris spine is noted. No bony spinal canal stenosis is noted. Very severe right neural foraminal narr owing is noted at C3-C4. Moderate to severe left neural foraminal narrowing is noted at C2-C3 and C4 -C5 and moderate bilateral foraminal narrowing is noted at C6-C7. CONCLUSION: 1. Very severe right neural foraminal narrowing at C3-C4 predominantly related to extensive hypertro phic change involving the right facet. 2. Moderate to severe left neural foraminal narrowing at C2-C3 and C4-C5 and moderate bilateral fora romaine narrowing at C6-C7. 3. 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 4. Diffuse cervical spondylosis. 5. No bony spinal canal stenosis. 6. No acute fracture or prevertebral soft tissue swelling. 7. Grade I anterolisthesis of C7 in relation to T1. Ivan Sanabria MD on May 18, 2017 at 23:03 Board Certified Radiologist. This report was verified electronically.
--- NOTE | 2017-05-18 23:19 | RADRPT ---
EXAM DATE/TIME: 05/18/2017 23:02 [facility] COMPARISON: No previous studies available for comparison. INDICATIONS : Pain post fall. MEDICAL HISTORY : Hypercholesterolemia. Hypertension SURGICAL HISTORY : None. ENCOUNTER: Initial ACUITY: 1 day PAIN SCORE: 0/10 LOCATION: Bilateral chest FINDINGS: A single view of the chest demonstrates the lungs to be symmetrically aerated without evidence of mas s, infiltrate or effusion. The cardiomediastinal contours are unremarkable. Osseous structures are intact. CONCLUSION: Normal examination. Bernard Riggs MD on May 18, 2017 at 23:17 Board Certified Radiologist. This report was verified electronically.
[2017-05-18] MEDS ORDERED: AUGM875T3 PO (23:43)
--- NOTE | 2017-05-18 23:44 | PD ---
Physical Exam Narrative Patient was seen by my political science research assistant and myself. Data Data Last Documented VS Vital Signs Date Time Temp Pulse Resp B/P (MAP) Pulse Ox O2 Delivery O2 Flow Rate FiO2 05/18/17 21:56 81 18 97 Room Air 05/18/17 21:52 98.1 139/72 (94) Orders Orders Electrocardiogram (05/18/17 21:48) Complete Blood Count With Diff (05/18/17 21:48) Basic Metabolic Panel (Bmp) (05/18/17 21:48) Prothrombin Time / Inr (Pt) (05/18/17 21:48) Act Partial Throm Time (Ptt) (05/18/17 21:48) Magnesium (Mg) (05/18/17 21:48) Ct Brain W/O Iv Contrast(Rout) (05/18/17 21:48) Iv Access Insert/Monitor (05/18/17 21:48) Ecg Monitoring (05/18/17 21:48) Oximetry (05/18/17 21:48) Drug Screen, Random Urine (05/18/17 21:48) Alcohol (Ethanol) (05/18/17 21:48) Ct Cerv Spine W/O Contrast (05/18/17 ) Ct Facial Bones W/O Iv Cont (05/18/17 ) Chest, Single Ap (05/18/17 ) Wound Care (05/18/17 21:48) Tetanus/Diphtheria Tox Adult (Tetanus/Di (05/18/17 22:00) Lidocai-Epi 1%-1:100,000 Inj (Xylocaine- (05/18/17 22:00) Labs Laboratory Tests Test 05/18/17 22:03 White Blood Count 8.8 TH/MM3 Red Blood Count 3.97 MIL/MM3 Hemoglobin 12.6 GM/DL Hematocrit 38.0 % Mean Corpuscular Volume 95.7 FL Mean Corpuscular Hemoglobin 31.8 PG Mean Corpuscular Hemoglobin Concent 33.3 % Red Cell Distribution Width 13.6 % Platelet Count 225 TH/MM3 Mean Platelet Volume 8.3 FL Neutrophils (%) (Auto) 47.0 % Lymphocytes (%) (Auto) 42.3 % Monocytes (%) (Auto) 6.6 % Eosinophils (%) (Auto) 3.2 % Basophils (%) (Auto) 0.9 % Neutrophils # (Auto) 4.1 TH/MM3 Lymphocytes # (Auto) 3.7 TH/MM3 Monocytes # (Auto) 0.6 TH/MM3 Eosinophils # (Auto) 0.3 TH/MM3 Basophils # (Auto) 0.1 TH/MM3 CBC Comment DIFF FINAL Differential Comment Prothrombin Time 10.9 SEC Prothromb Time International Ratio 1.0 RATIO Activated Partial Thromboplast Time 26.1 SEC Blood Urea Nitrogen 29 MG/DL Creatinine 1.01 MG/DL Random Glucose 109 MG/DL Calcium Level 8.6 MG/DL Magnesium Level 2.0 MG/DL Sodium Level 141 MEQ/L Potassium Level 3.8 MEQ/L Chloride Level 105 MEQ/L Carbon Dioxide Level 23.6 MEQ/L Anion Gap 12 MEQ/L Estimat Glomerular Filtration Rate 72 ML/MIN Ethyl Alcohol Level 294 MG/DL MDM Supervised Visit with PARAS: Yes Interpretation(s) Last Impressions Maxillofacial CT 05/18/17 0000 Signed Impressions: Service Date/Time: Thursday, May 18, 2017 22:38 - CONCLUSION: 1. No facial bone fracture identified. 2. Soft tissue swelling overlying the left zygoma. 3. Mucosal thickening involving the bilateral maxillary and ethmoid sinuses as well as the left sphenoid sinus. Ivan Sanabria MD Chest X-Ray 05/18/17 0000 Signed Impressions: Service Date/Time: Thursday, May 18, 2017 23:02 - CONCLUSION: Normal examination. Bernard Riggs MD 23:36 PM. CBC within normal limit. BMP within normal limit. BUN 29. Alcohol 294. Diagnosis Primary Impression: Laceration of left eyebrow Qualified Codes: S01.112A - Laceration without foreign body of left eyelid and periocular area, initial encounter Additional Impressions: Closed head injury Qualified Codes: S09.90XA - Unspecified injury of head, initial encounter Alcohol intoxication Qualified Codes: F10.920 - Alcohol use, unspecified with intoxication, uncomplicated Sinusitis Patient Instructions: General Instructions Additional Instruction: Daily between The wound clean and dry for 10 days. Head trauma instructions given. Augmentin as directed. Follow-up with personal physician. Return as needed. Med/Other Pt SpecificInfo: No Change to Meds Scripts Amoxicillin-Clavulanate (Augmentin) 875-125 Mg Tab 1 TAB PO BID for Infection, #20 TAB 0 Refills Prov: Hilario Coronel MD 05/18/17 Disposition: 01 DISCHARGE HOME Condition: Stable Hilario Coronel MD May 18, 2017 23:44
[2017-05-18 23:56] VITALS: BP 152/86; PULSE 100; RESP 18; TEMP 98.1; O2SAT 100
--- NOTE | 2017-05-19 11:57 | EKG ---
Date Performed: 05/18/2017 Time Performed: 22:00:43 PTAGE: 72 years EKG: Sinus rhythm POSSIBLE LEFT VENTRICULAR HYPERTROPHY ABNORMAL ECG PREVIOUS TRACING : 12/07/2016 09.28 Compared to prior tracing no significant change DOCTOR: Concetta Sullivan Interpretating Date/Time 05/19/2017 11:55:55
== END 2017-05-19 00:16 | disposition home or self-care (01) ==
LOC: NEPE 21:41
DX: S01.112A Laceration without foreign body of left eyelid and periocular area, initial encounter (principal); S09.90XA Unspecified injury of head, initial encounter; F10.920 Alcohol use, unspecified with intoxication, uncomplicated; R94.31 Abnormal electrocardiogram [ECG] [EKG]; I10 Essential (primary) hypertension; E78.00 Pure hypercholesterolemia, unspecified; W01.0XXA Fall on same level from slipping, tripping and stumbling without subsequent striking against object, initial encounter; Z23 Encounter for immunization; Z79.899 Other long term (current) drug therapy; Z87.19 Personal history of other diseases of the digestive system; Z87.39 Personal history of other diseases of the musculoskeletal system and connective tissue
CPT/HCPCS: 12011; 70450; 70486; 71010; 72125; 80048; 80307; 83735; 85025; 85610; 85730; 90471; 90714; 93005